=== PATIENT | female | born 1970 | race African-American/Black ===

== ENCOUNTER 2016-11-25 23:07 | Emergency (ER) | payer SELFPAY ==
--- NOTE | 2016-11-25 23:30 | ED.ADGEN ---
Adult General Chief Complaint Chief Complaint Nausea HPI HPI Patient is a 46 year old -[place] female who presents with nausea, diarrhea. She states been going on for last several days. She denies any blood in her stools. She states she's had several loose stools every day. She is also having a cough. She has inhalers and does smoke. She states she's been using her inhalers are time she coughs her chest hurts somewhat. She denies any shortness of breath. She denies any abdominal pain, vaginal discharge, bleeding , dysuria. Review of Systems Review of Systems Constitutional: Denies fever or chills [] Eyes: Denies change in visual acuity, redness, or eye pain [] HENT: Denies nasal congestion or sore throat [] Respiratory: Denies cough or shortness of breath [] Cardiovascular: No additional information not addressed in HPI [] GI: Denies abdominal pain, nausea, vomiting, bloody stools [] : Denies dysuria or hematuria [] Musculoskeletal: Denies back pain or joint pain [] Integument: Denies rash or skin lesions [] Neurologic: Denies headache, focal weakness or sensory changes [] Endocrine: Denies polyuria or polydipsia [] Current Medications Current Medications Current Medications Medications (Trade) Dose Ordered Sig/Nickie Start Time Stop Time Status Last Admin Dose Admin Albuterol/ Ipratropium (Duoneb) 3 ml 1X ONCE 11/26/16 01:15 11/26/16 01:31 DC 11/26/16 01:20 3 ML Ondansetron HCl (Zofran) 4 mg 1X ONCE 11/25/16 23:45 11/25/16 23:46 DC 11/25/16 23:45 4 MG Sodium Chloride 1,000 ml @ 1,000 mls/hr 1X ONCE 11/26/16 02:00 11/26/16 02:59 DC 11/26/16 02:00 1,000 MLS/HR Allergies Allergies Allergies Coded Allergies Type Severity Reaction Last Updated Verified No Known Allergies Allergy Unknown 11/25/16 Yes Physical Exam Physical Exam Constitutional: Well developed, well nourished, no acute distress, non-toxic appearance. [] HENT: Normocephalic, atraumatic, bilateral external ears normal, oropharynx moist, no oral exudates, nose normal. [] Eyes: PERRLA, EOMI, conjunctiva normal, no discharge. [] Neck: Normal range of motion, no tenderness, supple, no stridor. [] Cardiovascular:Heart rate regular rhythm, no murmur [] Lungs & Thorax: Wheezing bilaterally, good air flow Abdomen: Bowel sounds normal, soft, no tenderness, no masses, no pulsatile masses. [] Skin: Warm, dry, no erythema, no rash. [] Back: No tenderness, no CVA tenderness. [] Extremities: No tenderness, no cyanosis, no clubbing, ROM intact, no edema. [] Neurologic: Alert and oriented X 3, normal motor function, normal sensory function, no focal deficits noted. [] Psychologic: Affect normal, judgement normal, mood normal. [] Current Patient Data Vital Signs Vital Signs Date Time Temp Pulse Resp B/P (MAP) Pulse Ox O2 Delivery O2 Flow Rate FiO2 11/26/16 01:20 95 Room Air Lab Results Laboratory Tests Test 11/25/16 23:40 11/25/16 23:50 Urine Collection Type Unknown Urine Color Yellow Urine Clarity Clear Urine pH 5.0 Urine Specific [place] <=1.005 Urine Protein 30 mg/dl (NEG-TRACE) Urine Glucose (UA) Neg mg/dL (NEG) Urine Ketones (Stick) Neg mg/dL (NEG) Urine Blood Trace (NEG) Urine Nitrite Neg (NEG) Urine Bilirubin Neg (NEG) Urine Urobilinogen Dipstick 0.2 mg/dL (0.2 mg/dL) Urine Leukocyte Esterase Neg (NEG) Urine RBC 0 /HPF (0-2) Urine WBC Occ /HPF (0-4) Urine Squamous Epithelial Cells Few /LPF Urine Bacteria Few /HPF (0-FEW) Urine Opiates Screen Neg (NEG) Urine Methadone Screen Neg (NEG) Urine Barbiturates Neg (NEG) Urine Phencyclidine Screen Neg (NEG) Urine Amphetamine/Methamphetamine Neg (NEG) Urine Benzodiazepines Screen Neg (NEG) Urine Cocaine Screen Neg (NEG) Urine Cannabinoids Screen Pos (NEG) Urine Ethyl Alcohol Pos (NEG) White Blood Count 8.7 x10^3/uL (4.0-11.0) Red Blood Count 4.05 x10^6/uL (3.50-5.40) Hemoglobin 13.4 g/dL (12.0-15.5) Hematocrit 39.7 % (36.0-47.0) Mean Corpuscular Volume 98 fL (79-100) Mean Corpuscular Hemoglobin 33 pg (25-35) Mean Corpuscular Hemoglobin Concent 34 g/dL (31-37) Red Cell Distribution Width 13.0 % (11.5-14.5) Platelet Count 330 x10^3/uL (140-400) Neutrophils (%) (Auto) 67 % (31-73) Lymphocytes (%) (Auto) 21 % (24-48) L Monocytes (%) (Auto) 9 % (0-9) Eosinophils (%) (Auto) 3 % (0-3) Basophils (%) (Auto) 1 % (0-3) Neutrophils # (Auto) 5.8 x10^3uL (1.8-7.7) Lymphocytes # (Auto) 1.8 x10^3/uL (1.0-4.8) Monocytes # (Auto) 0.7 x10^3/uL (0.0-1.1) Eosinophils # (Auto) 0.3 x10^3/uL (0.0-0.7) Basophils # (Auto) 0.1 x10^3/uL (0.0-0.2) Sodium Level 132 mmol/L (136-145) L Potassium Level 4.2 mmol/L (3.5-5.1) Chloride Level 97 mmol/L (98-107) L Carbon Dioxide Level 24 mmol/L (21-32) Anion Gap 11 (6-14) Blood Urea Nitrogen 7 mg/dL (7-20) Creatinine 0.8 mg/dL (0.6-1.0) Estimated GFR (Cockcroft-Gault) 92.6 Glucose Level 78 mg/dL (70-99) Calcium Level 8.8 mg/dL (8.5-10.1) Total Bilirubin 0.5 mg/dL (0.2-1.0) Direct Bilirubin 0.2 mg/dL (0.0-0.2) Aspartate Amino Transferase (AST) 39 U/L (15-37) H Alanine Aminotransferase (ALT) 34 U/L (14-59) Alkaline Phosphatase 86 U/L (46-116) Creatine Kinase 115 U/L (26-192) Total Protein 9.0 g/dL (6.4-8.2) H Albumin 3.6 g/dL (3.4-5.0) Lipase 93 U/L (73-393) Serum Test, Qualitative Negative (NEG) EKG EKG [] Radiology/Procedures Radiology/Procedures One view chest x-ray did not show any focal consolidations, bony abnormalities or pneumothorax, as interpreted by me. Course & Med Decision Making Course & Med Decision Making Pertinent Labs and Imaging studies reviewed. (See chart for details) Labs shows alcohol abuse, marijuana. Otherwise no acute. Chest x-ray does not show any acute abnormalities. Patient did receive albuterol treatment and feels better especially after 2 L of normal saline. She is being discharged with a Z-Aurelio for bronchitis. Patient is being discharged home. Of note she had no bowel movements while in the ER therefore her C. difficile was not collected. I do not suspect that C. difficile would be positive since she was here for 4 hours without a bowel movement. She was tachycardic after she received albuterol breathing treatment. Otherwise her vitals are stable condition. Patient is agreeable to the plan and being discharged in stable condition at this time. Final Impression Final Impression Diarrhea Alcohol abuse Dehydration Problems: Dragon Disclaimer Dragon Disclaimer This electronic medical record was generated, in whole or in part, using a voice recognition dictation system. TAMARA AN MD November 25, 2016 23:29
[2016-11-25] MEDS ORDERED: IV NORMAL SALINE 1,000ML 1,000 ML IV SCH (23:45)
[2016-11-25] MEDS ORDERED: ONDANSETRON PF 4 MG/2 ML VIAL. IV ONE (23:45)
[2016-11-26 00:04] LABS: BASO # 0.1 x10^3/uL (0.0-0.2); BASO % 1 % (0-3); EOS # 0.3 x10^3/uL (0.0-0.7); EOS % 3 % (0-3); HEMATOCRIT 39.7 % (36.0-47.0); HEMOGLOBIN 13.4 g/dL (12.0-15.5); LYMPH # 1.8 x10^3/uL (1.0-4.8); LYMPH % 21 % (24-48); MEAN CORPUSCULAR HEMOGLOBIN 33 pg (25-35); MEAN CORPUSCULAR HGB CONC 34 g/dL (31-37); MEAN CORPUSCULAR VOLUME 98 fL (79-100); MONO # 0.7 x10^3/uL (0.0-1.1); MONO % 9 % (0-9); NEUT # 5.8 x10^3uL (1.8-7.7); NEUT % 67 % (31-73); PLATELET COUNT 330 x10^3/uL (140-400); RED BLOOD COUNT 4.05 x10^6/uL (3.50-5.40); WHITE BLOOD COUNT 8.7 x10^3/uL (4.0-11.0)
[2016-11-26 00:17] LABS: AMPHETAMINE/METHAMPHETAMINE NEG (NEG); BARBITURATES NEG (NEG); BENZODIAZEPINES NEG (NEG); CANNABINOIDS POS (NEG); COCAINE NEG (NEG); METHADONE NEG (NEG); OPIATES NEG (NEG); PHENCYCLIDINE NEG (NEG)
[2016-11-26 00:20] LABS: ALBUMIN 3.6 g/dL (3.4-5.0); CALCIUM 8.8 mg/dL (8.5-10.1); CREATININE 0.8 mg/dL (0.6-1.0); DIRECT BILIRUBIN 0.2 mg/dL (0.0-0.2); GFR 92.6; POTASSIUM 4.2 mmol/L (3.5-5.1); PREG TEST PT QUAL NEGATIVE (NEG); TOTAL BILIRUBIN 0.5 mg/dL (0.2-1.0)
[2016-11-26 00:22] LABS: BACTERIA,URINE FEW /HPF (0-FEW); BILIRUBIN,URINE NEG (NEG); CLARITY,URINE CLEAR; COLOR,URINE YELLOW; GLUCOSE,URINE NEG (NEG); NITRITE,URINE NEG (NEG); RBC,URINE 0 /HPF (0-2); SQUAMOUS EPITHELIAL CELL,UR FEW /LPF; UROBILINOGEN,URINE 0.2 mg/dL (0.2 mg/dL); WBC,URINE OCC /HPF (0-4)
[2016-11-26] MEDS ORDERED: IPRATRPIUM/ALBUTEROL 0.5/2.5MG 3 ML NEBU. NEB ONE (01:15)
[2016-11-26] MEDS ORDERED: IV NORMAL SALINE 1,000ML 1,000 ML IV ONE (02:00)
[2016-11-26] MEDS ORDERED: AZIT250T6 PO (03:44)
[2016-11-26 03:45] VITALS: BP 106/78
--- NOTE | 2016-11-26 07:00 | RAD ---
Indication: Wheezing and chest pain. Time of exam 0120 hours. Comparison is made with prior chest from 08/22/2016. FINDINGS: The heart size is normal. The lungs are clear. No pleural effusion or pneumothorax is identified. The pulmonary vascularity is normal. IMPRESSION: No acute abnormality detected.
== END 2016-11-26 03:45 | disposition home or self-care (01) ==
LOC: ER 23:11
DX: R19.7 Diarrhea, unspecified (principal); E86.0 Dehydration; F10.10 Alcohol abuse, uncomplicated
CPT/HCPCS: 36415; 71010; 80048; 80076; 80305; 81001; 82550; 83690; 84703; 85027; 94640; 96361; 96374; 99285; J2405; J7620; G0481; J7030

== ENCOUNTER 2018-01-18 09:25 | Emergency (ER) | payer SELFPAY ==
[~2018-01-18] VITALS: Ht 152.4 cm; Wt 78.6 kg
[~2018-01-18 09:25] MED LIST: AZIT250T6 PO
[2018-01-18] MEDS ORDERED: IPRATRPIUM/ALBUTEROL 0.5/2.5MG 3 ML NEBU. NEB ONE ×2 (10:00→13:45)
[2018-01-18] MEDS ORDERED: methylPREDNISolone SOD SUCC PF 125 MG/2 ML VIAL. IV ONE (10:00)
[2018-01-18] MEDS ORDERED: IV NORMAL SALINE 1,000ML 1,000 ML IV SCH ×2 (10:00→11:45)
[2018-01-18] MEDS ORDERED: 0.9 % SODIUM CHLORIDE 10 ML DISP.SYRIN. IV ONE (10:00)
[2018-01-18] MEDS ORDERED: ACETAMINOPHEN 500 MG TABLET PO ONE (10:00)
--- NOTE | 2018-01-18 11:03 | RAD ---
EXAM: Chest, 2 views. HISTORY: Fever. COMPARISON: 11/26/2016 FINDINGS: Frontal and lateral views of the chest are obtained. There is no infiltrate, pleural effusion or pneumothorax. The heart is normal in size. There are suspected healed or healing right rib fractures. IMPRESSION: No acute pulmonary finding. Electronically signed by: Estefani Moore MD (01/18/2018 11:00 AM) [facility]
[2018-01-18 11:09] LABS: BASO % 0 % (0-3); EOS % 0 % (0-3); HEMATOCRIT 39.8 % (36.0-47.0); HEMOGLOBIN 13.5 g/dL (12.0-15.5); LYMPH # 0.9 x10^3/uL (1.0-4.8); LYMPH % 8 % (24-48); MEAN CORPUSCULAR HEMOGLOBIN 32 pg (25-35); MEAN CORPUSCULAR HGB CONC 34 g/dL (31-37); MEAN CORPUSCULAR VOLUME 95 fL (79-100); MONO # 0.9 x10^3/uL (0.0-1.1); MONO % 8 % (0-9); NEUT # 9.9 x10^3uL (1.8-7.7); NEUT % 84 % (31-73); PLATELET COUNT 229 x10^3/uL (140-400); RED BLOOD COUNT 4.18 x10^6/uL (3.50-5.40); RED CELL DISTRIBUTION WIDTH 13.1 % (11.5-14.5); WHITE BLOOD COUNT 11.7 x10^3/uL (4.0-11.0)
[2018-01-18 11:22] LABS: ALBUMIN 3.3 g/dL (3.4-5.0); ALBUMIN/GLOBULIN RATIO 0.6 (1.0-1.7); CALCIUM 8.6 mg/dL (8.5-10.1); CREATININE 1.3 mg/dL (0.6-1.0); GFR 52.7; POTASSIUM 3.3 mmol/L (3.5-5.1); TOTAL BILIRUBIN 0.8 mg/dL (0.2-1.0); TOTAL PROTEIN 8.4 g/dL (6.4-8.2)
[2018-01-18] MEDS ORDERED: IV NORMAL SALINE 1,000ML 1,000 ML IV ONE (11:30)
[2018-01-18 11:38] LABS: INFLUENZA A PATIENT NEGATIVE (NEGATIVE); INFLUENZA B PATIENT NEGATIVE (NEGATIVE)
--- NOTE | 2018-01-18 11:41 | PHYS DOC ---
Past History Past Medical History: Arthritis, COPD Past Surgical History: Tubal ligation Smoking: Cigarettes Alcohol Use: None Drug Use: None Adult General Chief Complaint Chief Complaint: COUGH HPI HPI Patient is a [47] year old [female] who presents with [cough and shortness of breath.] Patient complaining of productive cough with yellow sputum for the last 5 days associated with shortness of breath and bilateral chest pain during episodes of cough. Patient states she had temperature of 103 two days ago and complaining of several episodes of diarrhea without vomiting. She denies sick contacts and urinary symptoms. Patient has history of rheumatoid arthritis and currently taking prednisone 5 mg daily and methotrexate. Review of Systems Review of Systems Constitutional: Reports fever and chills and generalized weakness Eyes: Denies change in visual acuity, redness, or eye pain [] HENT: Reports nasal congestion and sore throat Respiratory: Reports cough and shortness of breath Cardiovascular: No additional information not addressed in HPI [] GI: Denies abdominal pain, nausea, vomiting, bloody stools , reports diarrhea [] : Denies dysuria or hematuria [] Musculoskeletal: Denies back pain or joint pain [] Integument: Denies rash or skin lesions [] Neurologic: Denies headache, focal weakness or sensory changes [] Endocrine: Denies polyuria or polydipsia [] All other systems were reviewed and found to be within normal limits, except as documented in this note. Current Medications Current Medications Current Medications Medications (Trade) Dose Ordered Sig/Nickie Start Time Stop Time Status Last Admin Dose Admin Acetaminophen (Tylenol) 1,000 mg 1X ONCE 01/18/18 10:00 01/18/18 10:01 DC 01/18/18 10:00 1,000 MG Albuterol/ Ipratropium (Duoneb) 3 ml 1X ONCE 01/18/18 10:00 01/18/18 10:01 DC 01/18/18 10:04 3 ML Ceftriaxone Sodium 1 gm/ Sodium Chloride 50 ml @ 100 mls/hr 1X ONCE 01/18/18 11:45 01/18/18 12:14 UNV Fentanyl Citrate (Fentanyl 2ml Vial) 50 mcg 1X ONCE 01/18/18 11:00 01/18/18 11:01 DC 01/18/18 11:00 50 MCG Methylprednisolone Sodium Succinate (SOLU-Medrol 125MG VIAL) 125 mg 1X ONCE 01/18/18 10:00 01/18/18 10:01 DC 01/18/18 10:00 125 MG Sodium Chloride 1,000 ml @ 1,000 mls/hr 1X ONCE 01/18/18 11:30 01/18/18 12:29 Sodium Chloride (Normal Saline Flush) 10 ml 1X ONCE 01/18/18 10:00 01/18/18 10:01 DC 01/18/18 10:00 10 ML Allergies Allergies Allergies Coded Allergies Type Severity Reaction Last Updated Verified No Known Allergies Allergy Unknown 11/25/16 Yes Physical Exam Physical Exam Constitutional: Moderate distress, non-toxic appearance, very thin appearance, febrile. [] HENT: Normocephalic, atraumatic, bilateral external ears normal, oropharynx dry , no oral exudates, nose normal. [] Eyes: PERRLA, EOMI, conjunctiva normal, no discharge. [] Neck: Normal range of motion, no tenderness, supple, no stridor. [] Cardiovascular: Tachycardia, no murmur [] Lungs & Thorax: Moderate respiratory distress, tachypnea with bilateral wheezing and intercostal retraction Abdomen: Bowel sounds normal, soft, no tenderness, no masses, no pulsatile masses. [] Skin: Warm, dry, no erythema, no rash. [] Back: No tenderness, no CVA tenderness. [] Extremities: No tenderness, no cyanosis, no clubbing, ROM intact, no edema. [] Neurologic: Alert and oriented X 3, normal motor function, normal sensory function, no focal deficits noted. [] Psychologic: Affect anxious, judgement normal, mood normal. [] Current Patient Data Vital Signs Vital Signs Date Time Temp Pulse Resp B/P (MAP) Pulse Ox O2 Delivery O2 Flow Rate FiO2 01/18/18 11:30 101.0 134 20 119/56 (77) 95 Room Air Lab Results Laboratory Tests Test 01/18/18 10:44 01/18/18 10:47 White Blood Count 11.7 x10^3/uL (4.0-11.0) H Red Blood Count 4.18 x10^6/uL (3.50-5.40) Hemoglobin 13.5 g/dL (12.0-15.5) Hematocrit 39.8 % (36.0-47.0) Mean Corpuscular Volume 95 fL (79-100) Mean Corpuscular Hemoglobin 32 pg (25-35) Mean Corpuscular Hemoglobin Concent 34 g/dL (31-37) Red Cell Distribution Width 13.1 % (11.5-14.5) Platelet Count 229 x10^3/uL (140-400) Neutrophils (%) (Auto) 84 % (31-73) H Lymphocytes (%) (Auto) 8 % (24-48) L Monocytes (%) (Auto) 8 % (0-9) Eosinophils (%) (Auto) 0 % (0-3) Basophils (%) (Auto) 0 % (0-3) Neutrophils # (Auto) 9.9 x10^3uL (1.8-7.7) H Lymphocytes # (Auto) 0.9 x10^3/uL (1.0-4.8) L Monocytes # (Auto) 0.9 x10^3/uL (0.0-1.1) Eosinophils # (Auto) 0.0 x10^3/uL (0.0-0.7) Basophils # (Auto) 0.0 x10^3/uL (0.0-0.2) Sodium Level 126 mmol/L (136-145) L Potassium Level 3.3 mmol/L (3.5-5.1) L Chloride Level 93 mmol/L (98-107) L Carbon Dioxide Level 18 mmol/L (21-32) L Anion Gap 15 (6-14) H Blood Urea Nitrogen 18 mg/dL (7-20) Creatinine 1.3 mg/dL (0.6-1.0) H Estimated GFR (Cockcroft-Gault) 52.7 BUN/Creatinine Ratio 14 (6-20) Glucose Level 139 mg/dL (70-99) H Lactic Acid Level 0.9 mmol/L (0.4-2.0) Calcium Level 8.6 mg/dL (8.5-10.1) Total Bilirubin 0.8 mg/dL (0.2-1.0) Aspartate Amino Transferase (AST) 70 U/L (15-37) H Alanine Aminotransferase (ALT) 26 U/L (14-59) Alkaline Phosphatase 69 U/L (46-116) Troponin I Quantitative < 0.017 ng/mL (0-0.055) Total Protein 8.4 g/dL (6.4-8.2) H Albumin 3.3 g/dL (3.4-5.0) L Albumin/Globulin Ratio 0.6 (1.0-1.7) L Group A Streptococcus Rapid Negative (NEGATIVE) EKG EKG [] Radiology/Procedures Radiology/Procedures [][address] [id number] IMAGING REPORT Signed PATIENT: ALEXEY ROJAS ACCOUNT: [id number] : 1970 LOCATION: ER AGE: 47 SEX: F EXAM STATUS: PRE ER ORD. PHYSICIAN: MARISOL YOST MD REASON: fever and cough PROCEDURE: CHEST PA & LATERAL EXAM: Chest, 2 views. HISTORY: Fever. COMPARISON: 11/26/2016 FINDINGS: Frontal and lateral views of the chest are obtained. There is no infiltrate, pleural effusion or pneumothorax. The heart is normal in size. There are suspected healed or healing right rib fractures. IMPRESSION: No acute pulmonary finding. Electronically signed by: Estefani Kevin MD (01/18/2018 11:00 AM) [facility] DICTATED AND SIGNED BY: ESTEFANI KEVIN MD DATE: 01/18/18 1100 CC: MARISOL YOST MD; PCP,NO ~ Course & Med Decision Making Course & Med Decision Making Pertinent Labs and Imaging studies reviewed. (See chart for details) Evaluation of patient in ER showed 47-year-old female patient on methotrexate and prednisone for rheumatoid arthritis and history of smoking presented to ER with cough and fever and shortness of breath. Patient had fever of 102.7 with respiratory distress, tachypnea, tachycardia. Patient did not have hypotension with altered level of consciousness. Patient treated with IV fluids, Tylenol, DuoNeb, prednisone with improvement of her condition. Chest x-ray did not show infiltration and lactic acid was less than 2. Patient treated with another liter of IV fluid and Rocephin and Dr. Mckinney informed at 1134 and agreed with plan of admission. Patient informed about test results and needs for admission and agreed with plan of care. [] Dragon Disclaimer Dragon Disclaimer This electronic medical record was generated, in whole or in part, using a voice recognition dictation system. Departure Departure: Impression: Primary Impression: Acute respiratory distress Additional Impressions: COPD exacerbation Sepsis Fever Hyponatremia Acute respiratory acidosis Tobacco abuse counseling Tobacco abuse Musculoskeletal chest pain Hypokalemia Renal insufficiency Sinus tachycardia History of rheumatoid arthritis Disposition: 09 ADMITTED INPATIENT (aT 1134) Admitting Physician: Americo Mckinney (aT 1134) Condition: GUARDED Referrals: PCP,NO (PCP) Critical Care Time Critical care time was [90] minutes exclusive of procedures. Problem Qualifiers MARISOL YOST MD Jan 18, 2018 11:41
[2018-01-18] MEDS ORDERED: cefTRIAXone IV Push 1 GM VIAL. IVP ONE (11:45)
[2018-01-18] MEDS ORDERED: cefTRIAXone IV Push 1 GM VIAL. IVP SCH (11:45)
[2018-01-18] MEDS ORDERED: ONDANSETRON PF 4 MG/2 ML VIAL. IV PRN (11:45)
[2018-01-18] MEDS ORDERED: POTASSIUM CHLORIDE 20 MEQ TABLET.ER. PO ONE (12:00)
[2018-01-18 12:59] LABS: BGAS PH 7.36 (7.35-7.45)
[2018-01-18 14:31] VITALS: BP 174/83
[2018-01-18 16:22] VITALS: BP 131/68
== END 2018-01-18 14:00 | disposition other institution (70) ==
LOC: ER 09:25 → UNDOADMIN 12:09 → 1 SOUTH 12:09
DX: R06.03 Acute respiratory distress (principal); J44.1 Chronic obstructive pulmonary disease with (acute) exacerbation; A41.9 Sepsis, unspecified organism; E87.2 Acidosis; E87.1 Hypo-osmolality and hyponatremia; E87.6 Hypokalemia; N28.9 Disorder of kidney and ureter, unspecified; R00.0 Tachycardia, unspecified; M06.9 Rheumatoid arthritis, unspecified; R07.89 Other chest pain; F17.210 Nicotine dependence, cigarettes, uncomplicated
CPT/HCPCS: 36415; 36600; 71046; 80053; 82803; 83605; 84484; 85025; 87040; 87070; 87804; 87880; 94640; 96361; 96374; 96375; 99285; J0696; J2405; J2930; J3010; J7620; J7030

== ENCOUNTER 2018-12-30 12:18 | Emergency (ER) | payer SELFPAY ==
[~2018-12-30] VITALS: Ht 152.4 cm; Wt 49.9 kg
[2018-12-30 12:33] VITALS: BP 112/80
--- NOTE | 2018-12-30 13:02 | RAD ---
FOOT RIGHT 3V History: Right foot pain Comparison: None. Findings: 3 views of the right foot are submitted. No acute fracture, dislocation, or aggressive bone destruction is identified. Impression: 1. No acute osseous abnormality is identified by radiographs. Electronically signed by: Fabio Vital MD (12/30/2018 1:00 PM) [facility]
[2018-12-30] MEDS ORDERED: HYDR-3165 PO (13:17)
[2018-12-30] MEDS ORDERED: MELO7.5T29 PO (13:17)
--- NOTE | 2018-12-30 13:18 | PHYS DOC ---
Past History Past Medical History: Other Additional Past Medical Histor: rheumatoid arthritis Past Surgical History: No Surgical History Smoking: Cigarettes Alcohol Use: None Drug Use: None Adult General Chief Complaint Chief Complaint: FOOT INJURY PAIN HPI HPI Patient is a 48-year-old female presents complaining of right foot pain that started last evening. No trauma. No recent weight changes. No previous history of this. No numbness or tingling is present. There is some swelling. Increased pain with movement. No home medicines have been taken for the pain.[] Review of Systems Review of Systems Constitutional: Denies fever or chills [] Eyes: Denies change in visual acuity, redness, or eye pain [] HENT: Denies nasal congestion or sore throat [] Respiratory: Denies cough or shortness of breath [] Cardiovascular: No chest pain or palpitations[] GI: Denies abdominal pain, nausea, vomiting, bloody stools or diarrhea [] : Denies dysuria or hematuria [] Musculoskeletal: Denies back pain, see history of present illness[] Integument: Denies rash or skin lesions [] Neurologic: Denies headache, focal weakness or sensory changes [] Endocrine: Denies polyuria or polydipsia [] All other systems were reviewed and found to be within normal limits, except as documented in this note. Allergies Allergies Allergies Coded Allergies Type Severity Reaction Last Updated Verified No Known Allergies Allergy Unknown 11/25/16 Yes Physical Exam Physical Exam Constitutional: Well developed, well nourished, no acute distress, non-toxic appearance. [] HENT: Normocephalic, atraumatic, bilateral external ears normal, oropharynx moist, no oral exudates, nose normal. [] Eyes: PERRLA, EOMI, conjunctiva normal, no discharge. [] Neck: Normal range of motion, no tenderness, supple, no stridor. [] Cardiovascular:Heart rate regular rhythm, no murmur [] Lungs & Thorax: Bilateral breath sounds clear to auscultation [] Abdomen: Bowel sounds normal, soft, no tenderness, no masses, no pulsatile masses. [] Skin: Warm, dry, no erythema, no rash. [] Back: No tenderness, no CVA tenderness. [] Extremities: Right foot has edema in the proximal portion of the foot. No ankle tenderness. Tenderness in the region of the edema. No first metatarsal tenderness. Patient is distally neurovascularly intact. A joint above and joined below the area of tenderness were evaluated and were normal. The other 3 extremities show: No tenderness, no cyanosis, no clubbing, ROM intact, no edema. [] Neurologic: Alert and oriented X 3, normal motor function, normal sensory function, no focal deficits noted. [] Psychologic: Affect normal, judgement normal, mood normal. [] Current Patient Data Vital Signs Vital Signs Date Time Temp Pulse Resp B/P (MAP) Pulse Ox O2 Delivery O2 Flow Rate FiO2 12/30/18 12:33 111 19 99 Room Air EKG EKG [] Radiology/Procedures Radiology/Procedures FOOT RIGHT 3V History: Right foot pain Comparison: None. Findings: 3 views of the right foot are submitted. No acute fracture, dislocation, or aggressive bone destruction is identified. Impression: 1. No acute osseous abnormality is identified by radiographs.[] Course & Med Decision Making Course & Med Decision Making Pertinent Labs and Imaging studies reviewed. (See chart for details) Medical decision making: There is no evidence of a fracture or dislocation. Do not believe that this is gout. No evidence of a DVT. This may be related to her rheumatoid arthritis however that is normally in her hands and is under good control. No evidence of neurovascular compromise. ED course: Patient arrived, was placed in bed, and tolerated exam well. She was transferred to and from radiology with any complications. After the return the imaging findings, these were discussed with the patient voiced understanding. A postop shoe was placed. Patient was distally neurovascularly intact after the shoe application. She was discharged in improved condition with all questions answered.[] Dragon Disclaimer Dragon Disclaimer This electronic medical record was generated, in whole or in part, using a voice recognition dictation system. Departure Departure: Impression: Primary Impression: Right foot pain Disposition: HOME, SELF-CARE Condition: IMPROVED Referrals: PCP,NO (PCP) Patient Instructions: Pain of Unknown Etiology (Pain without a known Cause) Additional Instructions: Follow-up with your regular doctor in 2 days. Stop smoking!. Weight-bear as l ittle as you can. Return to the ER if worsening pain, swelling, or any other concerns Scripts Hydrocodone Bit/Acetaminophen (NORCO 5-325 TABLET) 1 Each Tablet 1 TAB PO Q4-6HRS for severe pain, #20 TAB Prov: CALISTA RODGERS DO 12/30/18 Meloxicam (MELOXICAM) 7.5 Mg Tablet 7.5 MG PO DAILY for PAIN, #20 TAB Prov: CALISTA RODGERS DO 12/30/18 CALISTA RODGERS DO Dec 30, 2018 13:18
== END 2018-12-30 13:30 | disposition home or self-care (01) ==
LOC: ER 12:18
DX: M79.671 Pain in right foot (principal); R22.41 Localized swelling, mass and lump, right lower limb; F17.210 Nicotine dependence, cigarettes, uncomplicated; M06.842 Other specified rheumatoid arthritis, left hand; M06.841 Other specified rheumatoid arthritis, right hand
CPT/HCPCS: 73630; 99284

== ENCOUNTER → 2019-02-16 | Outpatient (CLI) | payer OTHER ==
[~2019-02-16] MED LIST changes: +HYDR-3165 PO; +MELO7.5T29 PO
--- NOTE | 2019-02-16 16:53 | RAD ---
Impression: CT chest with contrast HISTORY: History of cough, long-term smoking COMPARISON: None available TECHNIQUE: Axial CT images of chest were performed without contrast. Coronal and sagittal reformats are performed. Exposure: One or more of the following individualized dose reduction techniques were utilized for this examination: 1. Automated exposure control 2. Adjustment of the mA and/or kV according to patient size 3. Use of iterative reconstruction technique FINDINGS: The visualized thyroid gland grossly appears unremarkable. The central airways are patent. The heart size grossly appears unremarkable. The evaluation of the mediastinum is limited lack of IV contrast. Small mediastinal lymph nodes identified with the largest measuring 8 mm. Moderate focal consolidations identified in the bibasilar lungs ,left greater than right. Small scattered nodules identified in the periphery of the bilateral lungs with the largest measuring 5 mm in the right lower lobe of the lung.. No evidence of pleural effusion or pneumothorax. The visualized noncontrasted liver, spleen, adrenals grossly appears unremarkable. No evidence of lytic bony destructive lesion. IMPRESSION: 1. Moderate bibasilar lung consolidation changes , left greater than right, likely pneumonia or atelectasis and less likely neoplasm. Recommend close interval follow-up examination to document resolution/stability. 2. Scattered nodules identified in the bilateral lungs with the largest measuring 5 mm in the right lung base. Follow-up is recommended follow-up CT in 3-6 months. Electronically signed by: Caleb Enriquez MD (02/16/2019 4:50 PM) [id number]
== END | disposition home or self-care (01) ==
LOC: CT 15:20
PROVIDERS: ATTEND Family Medicine
DX: J45.909 Unspecified asthma, uncomplicated (principal); R91.8 Other nonspecific abnormal finding of lung field; Z72.0 Tobacco use
CPT/HCPCS: 71250

== ENCOUNTER 2019-02-23 10:48 | Emergency (ER) | payer SELFPAY ==
[~2019-02-23] VITALS: Ht 152.4 cm; Wt 46.1 kg
--- NOTE | 2019-02-23 11:21 | PHYS DOC ---
Past History Past Medical History: Arthritis, COPD, Other Additional Past Medical Histor: rheumatoid arthritis Past Surgical History: Tubal ligation Smoking: Cigarettes Alcohol Use: None Drug Use: None Adult General Chief Complaint Chief Complaint: SHORTNESS OF BREATH HPI HPI Patient is a 49 year old female who presents with complaint of shortness of breath and cough. Notes that her symptoms have been worsening over the past 2 days. Has had history of recurrent bronchitis and pneumonia. States that she started him productive cough. Days ago and been having restricted breathing during that time at home. Denies substernal chest pain. States that she has history of rheumatoid arthritis. Currently on daily methotrexate therapy. Was previously on oral steroids but discontinued use 2-3 months ago as directed by her primary doctor. States that she is currently taking Proventil and Advair for her chronic respiratory problems. States that she started noticing pain and discomfort going into her back. States that this has been consistent with previous episodes of pneumonia. Patient came to the emergency department for concern of this and wanted to be evaluated for treatment. Review of Systems Review of Systems Constitutional: Denies fever or chills [] Eyes: Denies change in visual acuity, redness, or eye pain [] HENT: Denies nasal congestion or sore throat [] Respiratory: Cough, chest tightness, shortness of breath[] Cardiovascular: Denies substernal chest pain or edema[] GI: Denies abdominal pain, nausea, vomiting, bloody stools or diarrhea [] : Denies dysuria or hematuria [] Musculoskeletal: Back pain[] Integument: Denies rash or skin lesions [] Neurologic: Denies headache, focal weakness or sensory changes [] All other systems were reviewed and found to be within normal limits, except as documented in this note. Allergies Allergies Allergies Coded Allergies Type Severity Reaction Last Updated Verified No Known Allergies Allergy Unknown 11/25/16 Yes Physical Exam Physical Exam Constitutional: Alert, afebrile, vital signs stable, no acute distress. [] HENT: Normocephalic, atraumatic, bilateral external ears normal, oropharynx moist, no oral exudates, nose normal. [] Eyes: PERRLA, EOMI, conjunctiva normal, no discharge. [] Neck: Normal range of motion, no tenderness, supple, no stridor. [] Cardiovascular: Mildly tachycardic, regular rhythm, no murmur [] Lungs & Thorax: Mildly restricted air movement bilaterally, bilateral rhonchi, no wheezes or rales[] Abdomen: Bowel sounds normal, soft, no tenderness, no masses, no pulsatile masses. [] Skin: Warm, dry, no erythema, no rash. [] Back: No tenderness, no CVA tenderness. [] Extremities: No tenderness, no cyanosis, no clubbing, ROM intact, no edema. [] Neurologic: Alert and oriented X 3, normal motor function, normal sensory function, no focal deficits noted. [] Current Patient Data Vital Signs Vital Signs Date Time Temp Pulse Resp B/P (MAP) Pulse Ox O2 Delivery O2 Flow Rate FiO2 02/23/19 11:01 98.7 94 16 99 Room Air Lab Results Not performed EKG EKG Interpreted by me: Heart rate 89, sinus rhythm, normal intervals, no acute ST/T- wave abnormality is present[] Radiology/Procedures Radiology/[place] [address] IMAGING REPORT Signed PATIENT: ALEXEY ROJAS ACCOUNT: [id number] : 1970 LOCATION: ER AGE: 49 SEX: F EXAM STATUS: REG ER ORD. PHYSICIAN: ROB MERCEDES MD REASON: shortness of breath, productive cough for 2 days PROCEDURE: CHEST PA & LATERAL EXAM: Chest, 2 views. HISTORY: Shortness of breath. Productive cough. COMPARISON: 02/16/2019. FINDINGS: 2 views of the chest are obtained. There is suspected bilateral basilar atelectasis or infiltrate, only seen in the lateral projection. No convincing pleural effusion or pneumothorax is seen. The heart is normal in size. IMPRESSION: Suspected bilateral basilar atelectasis or infiltrate. This appears decreased compared to the prior CT, allowing for differences in imaging modality. Electronically signed by: Estefani Kevin MD (02/23/2019 11:51 AM) [place] [id number] DICTATED AND SIGNED BY: ESTEFANI KEVIN MD DATE: 02/23/19 1146 CC: ROB MERCEDES MD; JUVENTINO GRESHAM MD ~ [] Course & Med Decision Making Course & Med Decision Making Pertinent Labs and Imaging studies reviewed. (See chart for details) Patient was given DuoNeb and prednisone in the emergency department. The [facility]'s chest x-ray shows atelectasis versus possible infiltrate though this was noted on previous x-ray and appears improved compared to previous. Given the patient's history of chronic respiratory disease and pneumonia coupled with patient continuing on methotrexate which can suppressed immune system, I do feel the patient would benefit from initiation of antibiotic therapy. Patient discharged with prescriptions for albuterol, prednisone taper, and azithromycin. Advised follow-up with primary doctor in 2-3 days for reevaluation and return to the emergency department for any worsening symptoms. Patient was understanding and in agreement with treatment plan.[] Dragon Disclaimer Dragon Disclaimer This electronic medical record was generated, in whole or in part, using a voice recognition dictation system. Departure Departure: Impression: Primary Impression: COPD exacerbation Disposition: HOME, SELF-CARE Condition: IMPROVED Referrals: JUVENTINO GRESHAM MD (PCP) Patient Instructions: Chronic Obstructive Pulmonary Disease Exacerbation Additional Instructions: Follow-up with your primary doctor in 2-3 days for reevaluation. Return to the emergency department for any worsening symptoms. Scripts Albuterol Sulfate (PROVENTIL HFA INHALER) 6.7 Gm Hfa.aer.ad 2 PUFF INH PRN Q4HRS PRN for FOR ASTHMA, #1 INHALER 0 Refills Prov: ROB MERCEDES MD 02/23/19 Prednisone (PREDNISONE) 10 Mg Tablet 10 MG PO UD for PREDNISONE TAPER, #39 TAB 0 Refills Take 3 tablets by mouth twice a day for 3 days, then take 2 tablets by mouth twice a day for 3 days, then take 1 tablet by mouth twice a day for 3 days, then take 1 tablet by mouth daily x 3 days, then stop. Prov: ROB MERCEDES MD 02/23/19 Azithromycin (AZITHROMYCIN TABLET) 250 Mg Tablet 1 PKG PO UD, #6 TAB Prov: ROB MERCEDES MD 02/23/19 ROB MERCEDES MD Feb 23, 2019 11:21
[2019-02-23] MEDS ORDERED: predniSONE 20 MG TABLET PO ONE (11:45)
[2019-02-23] MEDS ORDERED: IPRATRPIUM/ALBUTEROL 0.5/2.5MG 3 ML NEBU. NEB ONE (11:45)
--- NOTE | 2019-02-23 11:54 | RAD ---
EXAM: Chest, 2 views. HISTORY: Shortness of breath. Productive cough. COMPARISON: 02/16/2019. FINDINGS: 2 views of the chest are obtained. There is suspected bilateral basilar atelectasis or infiltrate, only seen in the lateral projection. No convincing pleural effusion or pneumothorax is seen. The heart is normal in size. IMPRESSION: Suspected bilateral basilar atelectasis or infiltrate. This appears decreased compared to the prior CT, allowing for differences in imaging modality. Electronically signed by: Estefani Moore MD (02/23/2019 11:51 AM) [place] [id number]
[2019-02-23] MEDS ORDERED: ALBU2.5V8 INH (12:31)
[2019-02-23] MEDS ORDERED: PRED-220 PO (12:31)
[2019-02-23] MEDS ORDERED: AZIT250T6 PO (12:31)
[2019-02-23 12:43] VITALS: BP 111/82
--- NOTE | 2019-02-23 12:43 | EKG ---
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
== END 2019-02-23 12:45 | disposition home or self-care (01) ==
LOC: ER 10:48
DX: J44.1 Chronic obstructive pulmonary disease with (acute) exacerbation (principal); M06.9 Rheumatoid arthritis, unspecified; F17.210 Nicotine dependence, cigarettes, uncomplicated
CPT/HCPCS: 71046; 93005; 94640; 99284; J7512; J7620

== ENCOUNTER 2019-04-10 02:05 | Emergency (ER) | payer SELFPAY ==
[~2019-04-10] VITALS: Ht 152.4 cm; Wt 42.1 kg
[~2019-04-10 02:05] MED LIST changes: +ALBU2.5V8 INH; +PRED-220 PO
--- NOTE | 2019-04-10 02:09 | ED.ADGEN ---
Past History Past Medical History: Arthritis, Bronchitis, COPD, Other Additional Past Medical Histor: rheumatoid arthritis Past Surgical History: Tubal ligation Smoking: Cigarettes Alcohol Use: None Drug Use: None Adult General Chief Complaint Chief Complaint ". I ve been more short of breath...".. " coughing.. ".. I have COPD... and I am trying to quit... down to 10 cigarettes a day... " HPI HPI Patient is a 49 year old female who presents with above hx and complaints of dyspnea. Patient states her grandchild was visiting with her and he recently come down with a upper respiratory infection. Patient has been on steroids periodically to 3 times per year for her COPD. Has not been on steroids for some months. No recent antibiotics. Patient does albuterol treatments 4 times a day. No recent travel. No history immunosuppression. Review of Systems Review of Systems Constitutional: Denies fever or chills [] Eyes: Denies change in visual acuity, redness, or eye pain [] HENT: Denies nasal congestion or sore throat [] Respiratory: Complaints of cough and shortness of breath [] Cardiovascular: No additional information not addressed in HPI [] GI: Denies abdominal pain, nausea, vomiting, bloody stools or diarrhea [] : Denies dysuria or hematuria [] Musculoskeletal: Denies back pain or joint pain [] Integument: Denies rash or skin lesions [] Neurologic: Denies headache, focal weakness or sensory changes [] Endocrine: Denies polyuria or polydipsia [] All other systems were reviewed and found to be within normal limits, except as documented in this note. Family History Family History Grand baby visiting from [place] - recently had a URI Current Medications Current Medications Current Medications Medications (Trade) Dose Ordered Sig/Nickie Start Time Stop Time Status Last Admin Dose Admin Albuterol Sulfate (Ventolin Hfa Inhaler) 60 puff STK-MED ONCE 04/10/19 05:49 04/10/19 06:14 DC Albuterol/ Ipratropium (Duoneb) 3 ml 1X ONCE 04/10/19 04:15 04/10/19 04:18 DC 04/10/19 04:21 3 ML Aspirin (Children'S Aspirin) 324 mg 1X ONCE 04/10/19 02:30 04/10/19 02:57 DC 04/10/19 03:11 324 MG Azithromycin (Starter Pack - Zithromax) 2 startpack 1X ONCE 04/10/19 05:00 04/10/19 05:14 DC 04/10/19 05:21 2 STARTPACK Azithromycin (Zithromax) 500 mg 1X ONCE 04/10/19 04:30 04/10/19 05:12 DC 04/10/19 04:58 500 MG Ceftriaxone Sodium 1 gm/ Sodium Chloride 50 ml @ 100 mls/hr 1X ONCE 04/10/19 03:00 04/10/19 03:29 DC 04/10/19 03:17 100 MLS/HR Ceftriaxone Sodium (Rocephin) 1 gm STK-MED ONCE 04/10/19 03:15 04/10/19 03:15 DC Diphenhydramine HCl (Benadryl) 50 mg 1X ONCE 04/10/19 04:15 04/10/19 04:18 DC Lactated Ringer's 1,000 ml @ 100 mls/hr Q10H 04/10/19 02:30 04/10/19 06:14 DC 04/10/19 03:11 100 MLS/HR Lidocaine HCl 3 ml 1X ONCE 04/10/19 04:15 04/10/19 04:18 DC Methylprednisolone Sodium Succinate (SOLU-Medrol 125MG VIAL) 125 mg 1X ONCE 04/10/19 03:00 04/10/19 03:01 DC 04/10/19 03:17 125 MG Sodium Chloride 50 ml @ As Directed STK-MED ONCE 04/10/19 03:14 04/10/19 03:15 DC See nursing for home medications Allergies Allergies Allergies Coded Allergies Type Severity Reaction Last Updated Verified No Known Allergies Allergy Unknown 04/10/19 Yes Physical Exam Physical Exam Constitutional: moderated acute distress, non-toxic appearance. [] HENT: Normocephalic, atraumatic, bilateral external ears normal, oropharynx moist, no oral exudates, nose normal. [] Eyes: PERRLA, EOMI, conjunctiva normal, no discharge. [] Neck: Normal range of motion, no tenderness, supple, no stridor. [] Cardiovascular: Tachycardia Heart rate regular rhythm, no murmur [] Lungs & Thorax: Bilateral breath sounds equal at apex with scattered wheezes throughout auscultation [] Abdomen: Bowel sounds normal, soft, no tenderness, no masses, no pulsatile masses. [] Old surgery scar Skin: Warm, dry, no erythema, no rash. Poor turgor Back: No tenderness, no CVA tenderness. [] Extremities: No tenderness, no cyanosis, no clubbing, ROM intact, no edema. [] Decreased muscle mass Neurologic: Alert and oriented X 3, normal motor function, normal sensory function, no focal deficits noted. [] Psychologic: Affect anxious, judgement normal, mood normal. [] Current Patient Data Vital Signs Vital Signs Date Time Temp Pulse Resp B/P (MAP) Pulse Ox O2 Delivery O2 Flow Rate FiO2 04/10/19 05:55 98.4 112 24 136/91 (106) 98 Room Air Lab Results Laboratory Tests Test 04/10/19 02:20 04/10/19 04:10 White Blood Count 9.9 x10^3/uL (4.0-11.0) Red Blood Count 3.80 x10^6/uL (3.50-5.40) Hemoglobin 12.9 g/dL (12.0-15.5) Hematocrit 37.7 % (36.0-47.0) Mean Corpuscular Volume 99 fL (79-100) Mean Corpuscular Hemoglobin 34 pg (25-35) Mean Corpuscular Hemoglobin Concent 34 g/dL (31-37) Red Cell Distribution Width 12.8 % (11.5-14.5) Platelet Count 356 x10^3/uL (140-400) Neutrophils (%) (Auto) 76 % (31-73) H Lymphocytes (%) (Auto) 12 % (24-48) L Monocytes (%) (Auto) 8 % (0-9) Eosinophils (%) (Auto) 3 % (0-3) Basophils (%) (Auto) 1 % (0-3) Neutrophils # (Auto) 7.6 x10^3uL (1.8-7.7) Lymphocytes # (Auto) 1.2 x10^3/uL (1.0-4.8) Monocytes # (Auto) 0.8 x10^3/uL (0.0-1.1) Eosinophils # (Auto) 0.3 x10^3/uL (0.0-0.7) Basophils # (Auto) 0.1 x10^3/uL (0.0-0.2) Prothrombin Time 9.4 SEC (9.4-11.4) Prothrombin Time INR 1.0 (0.9-1.1) Activated Partial Thromboplast Time 31 SEC (23-33) D-Dimer (Yola) 0.41 mg/L (0.00-0.50) Sodium Level 136 mmol/L (136-145) Potassium Level 4.0 mmol/L (3.5-5.1) Chloride Level 100 mmol/L (98-107) Carbon Dioxide Level 21 mmol/L (21-32) Anion Gap 15 (6-14) H Blood Urea Nitrogen 9 mg/dL (7-20) Creatinine 0.9 mg/dL (0.6-1.0) Estimated GFR (Cockcroft-Gault) 79.9 Glucose Level 87 mg/dL (70-99) Calcium Level 9.1 mg/dL (8.5-10.1) Magnesium Level 2.3 mg/dL (1.8-2.4) Total Bilirubin 0.7 mg/dL (0.2-1.0) Direct Bilirubin 0.2 mg/dL (0.0-0.2) Aspartate Amino Transferase (AST) 28 U/L (15-37) Alanine Aminotransferase (ALT) 18 U/L (14-59) Alkaline Phosphatase 103 U/L (46-116) Creatine Kinase 254 U/L (26-192) H Troponin I Quantitative < 0.017 ng/mL (0-0.055) OE-Nyz-L-Type Natriuretic Peptide 155 pg/mL (0-124) H Total Protein 8.8 g/dL (6.4-8.2) H Albumin 3.8 g/dL (3.4-5.0) Lipase 49 U/L (73-393) L Urine Collection Type Void Urine Color Yellow Urine Clarity Clear Urine pH 5.5 Urine Specific [place] 1.015 Urine Protein 30 mg/dl (NEG-TRACE) Urine Glucose (UA) Neg mg/dL (NEG) Urine Ketones (Stick) 15 mg/dL (NEG) Urine Blood Trace (NEG) Urine Nitrite Neg (NEG) Urine Bilirubin Neg (NEG) Urine Urobilinogen Dipstick 0.2 mg/dL (0.2 mg/dL) Urine Leukocyte Esterase Neg (NEG) Urine RBC Occ /HPF (0-2) Urine WBC Occ /HPF (0-4) Urine Squamous Epithelial Cells Few /LPF Urine Amorphous Sediment Present /HPF Urine Bacteria Few /HPF (0-FEW) Urine Mucus Slight /LPF Urine Opiates Screen Neg (NEG) Urine Methadone Screen Neg (NEG) Urine Barbiturates Neg (NEG) Urine Phencyclidine Screen Neg (NEG) Urine Amphetamine/Methamphetamine Neg (NEG) Urine Benzodiazepines Screen Neg (NEG) Urine Cocaine Screen Neg (NEG) Urine Cannabinoids Screen Pos (NEG) Urine Ethyl Alcohol Neg (NEG) EKG EKG I interpretation EKG shows a sinus tachycardia heart 43 bpm. Does have some bimodal P-wave is in the left ventricle leads. Does have a trigger strain pattern. Has findings of (see separate segments and I, II and III Radiology/Procedures Radiology/Procedures [][address] [address] IMAGING REPORT Signed PATIENT: ALEXEY ROJAS ACCOUNT: [id number] : 1970 LOCATION: ER AGE: 49 SEX: F EXAM STATUS: REG ER ORD. PHYSICIAN: CRISS MEREDITH MD REASON: Dyspnea. Hx smoker, COPD, asthma PROCEDURE: CHEST PA & LATERAL PA and lateral chest x-rays HISTORY: Dyspnea, COPD and asthma. COMPARISON: Chest x-ray February 23, 2019. FINDINGS: Heart size normal. Mediastinal silhouette is normal. Mild chronic linear lower lobe atelectasis/scarring similar to the prior x-ray. No pneumothorax, pulmonary opacities or pleural effusions. Bones unremarkable. IMPRESSION: No acute process. Stable exam. Electronically signed by: Adonis Chisholm MD (04/10/2019 2:46 AM) [facility] DICTATED AND SIGNED BY: ADONIS CHISHOLM MD DATE: 04/10/19 0246 CC: CRISS MEREDITH MD; JUVENTINO GRESHAM MD ~ Course & Med Decision Making Course & Med Decision Making Pertinent Labs and Imaging studies reviewed. (See chart for details) Pt. insistent on discharge. Refused admission. Exhibit UCAR capacity. Will Discharge with Prednisone 50 daily, Zithromax 250 ( Liquid) daily. Pt. to stop smoking. Pt. to do albuteral or MDI tx 4 x day . Follow up with primary. Return if any concerns. [] Final Impression Final Impression 1. COPD exacerbation[] 2. Elevated CK 254 3. Tobacco Abuse 4. Bronchitis 5. Hx. Asthma 6. Hypoxia Dragon Disclaimer Dragon Disclaimer This electronic medical record was generated, in whole or in part, using a voice recognition dictation system. Dragon Disclaimer This chart was dictated in whole or in part using Voice Recognition software in a busy, high-work load, and often noisy Emergency Department environment. It may contain unintended and wholly unrecognized errors or omissions. Dragon Disclaimer This chart was dictated in whole or in part using Voice Recognition software in a busy, high-work load, and often noisy Emergency Department environment. It may contain unintended and wholly unrecognized errors or omissions. CRISS MEREDITH MD Apr 10, 2019 02:09
[2019-04-10] MEDS ORDERED: IPRATRPIUM/ALBUTEROL 0.5/2.5MG 3 ML NEBU. NEB ONE ×2 (02:15→04:15)
--- NOTE | 2019-04-10 02:20 | EKG ---
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
[2019-04-10] MEDS ORDERED: IV RINGERS SOLUTION,LACTATED 1,000 ML IV SCH (02:30)
[2019-04-10] MEDS ORDERED: ASPIRIN 81 MG TAB.CHEW PO ONE (02:30)
--- NOTE | 2019-04-10 02:49 | RAD ---
PA and lateral chest x-rays HISTORY: Dyspnea, COPD and asthma. COMPARISON: Chest x-ray February 23, 2019. FINDINGS: Heart size normal. Mediastinal silhouette is normal. Mild chronic linear lower lobe atelectasis/scarring similar to the prior x-ray. No pneumothorax, pulmonary opacities or pleural effusions. Bones unremarkable. IMPRESSION: No acute process. Stable exam. Electronically signed by: Mahad Chisholm MD (04/10/2019 2:46 AM) [facility]
[2019-04-10] MEDS ORDERED: methylPREDNISolone SOD SUCC PF 125 MG/2 ML VIAL. IV ONE (03:00)
[2019-04-10 03:09] LABS: ALBUMIN 3.8 g/dL (3.4-5.0); CALCIUM 9.1 mg/dL (8.5-10.1); CREATININE 0.9 mg/dL (0.6-1.0); DIRECT BILIRUBIN 0.2 mg/dL (0.0-0.2); GFR 79.9; MAGNESIUM 2.3 mg/dL (1.8-2.4); TOTAL BILIRUBIN 0.7 mg/dL (0.2-1.0); TOTAL PROTEIN 8.8 g/dL (6.4-8.2)
[2019-04-10 03:11] LABS: BASO # 0.1 x10^3/uL (0.0-0.2); BASO % 1 % (0-3); EOS # 0.3 x10^3/uL (0.0-0.7); EOS % 3 % (0-3); HEMATOCRIT 37.7 % (36.0-47.0); HEMOGLOBIN 12.9 g/dL (12.0-15.5); LYMPH # 1.2 x10^3/uL (1.0-4.8); LYMPH % 12 % (24-48); MEAN CORPUSCULAR HEMOGLOBIN 34 pg (25-35); MEAN CORPUSCULAR HGB CONC 34 g/dL (31-37); MEAN CORPUSCULAR VOLUME 99 fL (79-100); MONO # 0.8 x10^3/uL (0.0-1.1); MONO % 8 % (0-9); NEUT # 7.6 x10^3uL (1.8-7.7); NEUT % 76 % (31-73); PLATELET COUNT 356 x10^3/uL (140-400); RED CELL DISTRIBUTION WIDTH 12.8 % (11.5-14.5); WHITE BLOOD COUNT 9.9 x10^3/uL (4.0-11.0)
[2019-04-10] MEDS ORDERED: IV NORMAL SALINE 50ML 50 ML ONE (03:14)
[2019-04-10] MEDS ORDERED: cefTRIAXone SODIUM 1 GM VIAL ONE (03:15)
[2019-04-10] MEDS ORDERED: LIDOCAINE 2% 20 ML VIAL. IJ ONE (04:15)
[2019-04-10] MEDS ORDERED: diphenhydrAMINE 50 MG/ML VIAL IVP ONE (04:15)
[2019-04-10] MEDS ORDERED: AZITHROMYCIN 250 MG TABLET. PO ONE (04:30)
[2019-04-10] MEDS ORDERED: START PACK-AZITHROMY 100MG/5ML ORAL.SUSP 15ML BOTTLE STARTER PACK PO ONE (05:00)
[2019-04-10] MEDS ORDERED: START PACK-AZITHROMY 100MG/5ML ORAL.SUSP 15ML BOTTLE STARTER PACK ONE (05:01)
[2019-04-10] MEDS ORDERED: AZIT200S4 PO (05:31)
[2019-04-10] MEDS ORDERED: PRED50TA PO (05:31)
[2019-04-10 05:33] LABS: BARBITURATES NEG (NEG); BENZODIAZEPINES NEG (NEG); BILIRUBIN,URINE NEG (NEG); CANNABINOIDS POS (NEG); CLARITY,URINE CLEAR; COCAINE NEG (NEG); COLOR,URINE YELLOW; GLUCOSE,URINE NEG (NEG); METHADONE NEG (NEG); NITRITE,URINE NEG (NEG); OPIATES NEG (NEG); PHENCYCLIDINE NEG (NEG); UROBILINOGEN,URINE 0.2 mg/dL (0.2 mg/dL)
[2019-04-10 05:34] LABS: AMORPHOUS SEDIMENT,UR PRESENT /HPF; BACTERIA,URINE FEW /HPF (0-FEW); RBC,URINE OCC /HPF (0-2); SQUAMOUS EPITHELIAL CELL,UR FEW /LPF; WBC,URINE OCC /HPF (0-4)
[2019-04-10 05:40] LABS: AMPHETAMINE/METHAMPHETAMINE NEG (NEG)
[2019-04-10] MEDS ORDERED: ALBUTEROL SULFATE 8GM INHALER. INH ONE (05:45)
[2019-04-10] MEDS ORDERED: ALBUTEROL SULFATE 8GM INHALER. ONE (05:49)
[2019-04-10 05:55] VITALS: BP 136/91
[2019-04-10 11:17] LABS: THYROID STIM HORMONE (TSH) 5.413 uIU/mL (0.358-3.740)
== END 2019-04-10 05:56 | disposition home or self-care (01) ==
LOC: ER 02:05
DX: J44.1 Chronic obstructive pulmonary disease with (acute) exacerbation (principal); R09.02 Hypoxemia; R79.82 Elevated C-reactive protein (CRP); F17.210 Nicotine dependence, cigarettes, uncomplicated; M06.9 Rheumatoid arthritis, unspecified
CPT/HCPCS: 36415; 71046; 80048; 80061; 80076; 80307; 81001; 82550; 83690; 83735; 83880; 84443; 84484; 85025; 85379; 85610; 85730; 87040; 93005; 94640; 96374; 96375; 99285; J0456; J0696; J2930; J7120; J7613; J7620

== ENCOUNTER → 2020-01-27 | Outpatient (CLI) | payer OTHER ==
[~2020-01-27] MED LIST changes: +AZIT200S4 PO; +PRED50TA PO
--- NOTE | 2020-01-27 14:42 | RAD ---
EXAM: WRIST BILAT 3V, HAND BILAT 3V. HISTORY: Bilateral hand pain. Arthritis. COMPARISON: None. FINDINGS: There is soft tissue swelling about the proximal interphalangeal joints bilaterally. No clear erosions are appreciated about the proximal interphalangeal joints. There is some periarticular osteopenia. There are multiple erosions scattered throughout the carpus bilaterally. The largest involve the right capitate, both scaphoids, and the right radial styloid. There is capitoscaphoid joint space narrowing on the right greater than left. There is mild radiocarpal joint space narrowing on the right. There appears to be some subluxation at the first metacarpophalangeal joints bilaterally. No fractures are identified. IMPRESSION: 1. Multiple erosions along the carpus bilaterally is consistent with an inflammatory arthritic process such as rheumatoid arthritis. Correlate with other clinical data. Electronically signed by: Gunner Almazan MD (01/27/2020 2:39 PM) [id number]
== END ==
LOC: DXRAD 09:36
PROVIDERS: ATTEND Family Medicine
DX: M85.88 Other specified disorders of bone density and structure, other site (principal)
CPT/HCPCS: 73110; 73130

== ENCOUNTER → 2020-02-10 | Outpatient (CLI) | payer OTHER | LOC: LAB 09:34 | PROVIDERS: ATTEND Family Medicine | DX: R53.83 Other fatigue (principal); M06.9 Rheumatoid arthritis, unspecified | CPT/HCPCS: 86481; 86705; 86709; 86803; 87340 ==

== ENCOUNTER → 2020-02-24 | Outpatient (CLI) | payer OTHER ==
--- NOTE | 2020-02-24 17:01 | RAD ---
DATE: 02/24/2020 10:30 AM EXAM: DIGITAL SCREEN BILAT W/CAD HISTORY: Screening COMPARISON: 10/01/2016 Bilateral full field craniocaudal and mediolateral oblique images were obtained using digital technique. This study was interpreted with the benefit of Computerized Aided Detection (CAD). FINDINGS: Breast Density: HETERO The breast parenchyma Is heterogeneously dense, which could reduce sensitivity of mammography. Breast parenchyma level C No suspicious masses, microcalcifications or architectural distortion is present to suggest malignancy in either breast. The visualized axillae are unremarkable. IMPRESSION: No mammographic evidence of malignancy. BI-RADS CATEGORY: 1 NEGATIVE RECOMMENDED FOLLOW-UP: 12M 12 MONTH FOLLOW-UP Annual screening mammography is recommended, unless clinically indicated sooner based on symptoms or change in physical exam. PQRS compliance statement: Patient information was entered into a reminder system with a target due date for the next mammogram. Mammography is a sensitive method for finding small breast cancers, but it does not detect them all and is not a substitute for careful clinical examination. A negative mammogram does not negate a clinically suspicious finding and should not result in delay in biopsying a clinically suspicious abnormality. "Our facility is accredited by the [employer] Mammography Program."
== END | disposition home or self-care (01) ==
LOC: MAMMO 10:06
PROVIDERS: ATTEND Family Medicine
DX: Z12.31 Encounter for screening mammogram for malignant neoplasm of breast (principal)
CPT/HCPCS: 77067

== ENCOUNTER → 2020-07-25 | Outpatient (CLI) | payer OTHER ==
--- NOTE | 2020-07-25 11:35 | RAD ---
EXAM: Chest CT without intravenous contrast. HISTORY: Pulmonary nodule follow-up. Cigarette smoking history. TECHNIQUE: Computed tomographic images of the chest were obtained without contrast. Multiplanar refor matting was performed. *One or more of the following individualized dose reduction techniques were utilized for this examina tion: 1. Automated exposure control. 2. Adjustment of the mA and/or kV according to patient size. 3. Use of iterative reconstruction technique. COMPARISON: 02/16/2019. FINDINGS: The heart is normal in size. The aorta is normal in caliber. There is stable soft tissue de nsity within the anterior mediastinum, likely lymphatic in etiology. The possibility of a component o f thymic hyperplasia or rebound is not excluded. No pathologically enlarged hilar lymph node is seen. There is no infiltrate or pleural effusion. There is mild pulmonary emphysema with biapical subpleur al bleb formation. There are few scattered calcified granulomas. There are stable tiny groundglass an d solid nodules measuring 2 mm and 3 mm tiny peripheral nodules within both lungs, the most prominent of which is seen within the posterior right lower lobe (series 2, image 52). There is no acute findi ng involving the upper abdomen. There is no suspicious osseous lesion. IMPRESSION: 1. Mild apical predominant emphysema. 2. Stable tiny groundglass and solid nodules within the peripheral aspects of both lungs, the most pr ominent of which measures 3 mm within the right lower lobe. The interval stability favors benignity. Follow-up in one year is recommended to confirm longer-term stability. 3. Resolution of previously demonstrated bilateral lower lobe partial consolidation. Electronically signed by: Estefani Moore MD (07/25/2020 11:32 AM) [id number]
== END ==
LOC: CT 11:00
PROVIDERS: ATTEND Family Medicine
DX: J43.9 Emphysema, unspecified (principal); J84.10 Pulmonary fibrosis, unspecified; R91.8 Other nonspecific abnormal finding of lung field
CPT/HCPCS: 71250